=== PATIENT | male | born 1995 | race Caucasian/White ===

== ENCOUNTER 2016-08-29 21:42 | Emergency (ER) | payer OTHER ==
--- NOTE | 2016-08-29 22:06 | ED Physician Documentation ---
General Adult - HISTORIAN Historian: patient - HPI Stated Complaint: laceration Chief Complaint: General Adult Onset: minutes Timing: still present Severity: moderate Further Comments: yes (Pt is a 21 yo male who sustained a laceration to his forehead when he walked into a hanging lamp. Tetanus utd. No LOC.) - ROS CONST: no problems EYES/ENT: none CVS/RESP: none GI/: none MS/SKIN/LYMPH: other (R forehead laceration) - PAST HX Past History: none Allergies/Adverse Reactions: Allergies Allergy/AdvReac Type Severity Reaction Status Date / Time No Known Allergies Allergy Verified 08/29/16 22:40 Home Medications: Ambulatory Orders Medication Instructions Recorded NK [NK] 08/29/16 - SOCIAL HX Smoking History: non-smoker - FAMILY HX Family History: No - VITAL SIGNS Vital Signs: Vital Signs Temp Pulse Resp BP Pulse Ox 98.4 F 106 H 18 152/87 100 08/29/16 21:45 08/29/16 21:45 08/29/16 21:45 08/29/16 21:45 08/29/16 21:45 - REVIEWED ASSESSMENTS Nursing Assessment Reviewed: Yes Vitals Reviewed: Yes Procedures Wound Location: head, other (R forehead) Wound Length: 3 cn Wound's Depth, Shape: superficial Wound Explored: clean Betadine Prep?: Yes Anesthesia: Lidocaine w/ Epi Wound Debrided: minimal Wound Repaired With: sutures Suture Size/Type: 5:0, nylon Number of Sutures: 6 Layer Closure?: No Sterile Dressing Applied?: Yes General Adult Physical Exam - PHYSICAL EXAM GENERAL APPEARANCE: mild distress EENT: eye inspection normal NECK: normal inspection, supple RESPIRATORY: no resp distress BACK: normal inspection SKIN: other (3 cm superficial laceration R forehead) EXTREMITIES: non-tender, normal range of motion NEURO: oriented X3, motor nml, sensation nml Discharge Clincal Impression: Forehead laceration Qualifiers: Encounter type: initial encounter Qualified Code(s): S01.81XA - Laceration without foreign body of other part of head, initial encounter Referrals: Primary Doctor,No [Primary Care Provider] - Additional Instructions: Apply topical antibiotic such as Neosporin, Bacitracin, or Triple Antibiotic to sutured area every 12 hrs for 5 days. Follow up with primary provider in 5 to 7 days for suture removal. Home Medications: Ambulatory Orders NK [NK] 08/29/16 Condition: Good Disposition: 01 HOME, SELF-CARE Decision to Admit: NO Decision Time: 22:36
[2016-08-29] MEDS ORDERED: LIDOCAINE 1%/EPINEPHRINE 20ML VIAL IJ ONE (22:11)
[2016-08-29] MEDS ORDERED: NEOMYCIN SU/BACITRAC ZN/POLY 1 EACH OINT.PACK TP ONE (22:41)
[2016-08-29 22:47] VITALS: BP 147/81
== END 2016-08-29 22:43 | disposition home or self-care (01) ==
LOC: ED 21:42
DX: S01.81XA Laceration without foreign body of other part of head, initial encounter (principal); W19.XXXA Unspecified fall, initial encounter; Y93.9 Activity, unspecified; Y99.9 Unspecified external cause status
CPT/HCPCS: 12013; 99283